=== PATIENT | male | born 1970 | race Hispanic/Latino ===

== ENCOUNTER 2023-08-08 20:12 | Emergency (ER) | payer OTHER ==
[~2023-08-08] VITALS: Ht 180.3 cm; Wt 136.1 kg
[2023-08-08 20:48] LABS: BASOPHILS # (AUTO) 0.05 K/uL (0.00-0.20); BASOPHILS % (AUTO) 0.4 % (0.0-5.0); EOSINOPHILS # (AUTO) 0.12 K/uL (0.00-0.70); EOSINOPHILS % (AUTO) 1.1 % (0.0-8.0); HEMATOCRIT 46.2 % (42-54); IMMATURE GRANULOCYTE ABSOLUTE 0.04 K/uL (0-1); LYMPHOCYTES # (AUTO) 2.7 K/uL (1.0-4.8); LYMPHOCYTES % (AUTO) 23.7 % (21.0-51.0); MEAN CORPUSCULAR HGB CONC 33.1 g/dL (32.0-36.0); MEAN CORPUSCULAR VOLUME 87.7 fL (79-99); MONOCYTES % (AUTO) 8.4 % (3.0-13.0); NEUTROPHILS # (AUTO) 7.5 K/uL (1.8-7.7); PLATELET COUNT (AUTO) 203 K/uL (130-400); RED BLOOD CELL COUNT(AUTO) 5.27 MIL/uL (4.50-6.20); RED CELL DISTRIBUTION WIDTH 13.2 % (11.0-15.5); WHITE BLOOD COUNT (AUTO) 11.4 K/uL (4.8-10.8)
[2023-08-08 20:49] LABS: SARS-CoV-2, RNA, NAAT NEGATIVE SARS CoV-2 (NEGATIVE)
[2023-08-08 20:55] LABS: INFLUENZA TYPE A Negative For Type A (NEGATIVE); INFLUENZA TYPE B Negative For Type B (NEGATIVE)
[2023-08-08 21:01] LABS: CARBON DIOXIDE 33 mmol/L (21-32); CHLORIDE 105 mmol/L (101-111); GLOMERULAR FILTR. RATE CALC 92 mL/min (>90); GLUCOSE,RANDOM 148 mg/dL (70-105); POTASSIUM 3.9 mmol/L (3.5-5.1); SODIUM SERUM 142 mmol/L (136-145); UREA NITROGEN, BLOOD 12 mg/dL (7-18)
[2023-08-08 21:08] LABS: ALANINE AMINOTRANSFERASE 92 U/L (12-78); ALBUMIN 3.5 g/dL (3.5-5.0); ASPARTATE AMINOTRANSFERASE 29 U/L (10-37); BILIRUBIN,TOTAL 0.6 mg/dL (0.2-1.0); CREATINE KINASE, TOTAL 182 U/L (21-232); TOTAL PROTEIN, SERUM 7.4 g/dL (6.0-8.3)
[2023-08-08 22:08] VITALS: BP 145/87; O2SAT 95
[2023-08-08] MEDS ORDERED: PRED20TA3 PO (22:28)
[2023-08-08] MEDS ORDERED: ALBU90AE2 IH (22:28)
[2023-08-08] MEDS ORDERED: AZIT500T2 PO (22:28)
[2023-08-08] MEDS ORDERED: IPRATROPIUM/ALBUTEROL SULFATE 3 ML SOLUTION IH ONE (22:30)
[2023-08-08 22:44] VITALS: PULSE 90; RESP 14
[2023-08-08] MEDS ORDERED: CEFTRIAXONE 1G VIAL ONE (23:16)
[2023-08-08] MEDS ORDERED: CEFTRIAXONE 1G VIAL IVPB ONE (23:30)
== END 2023-08-08 23:50 | disposition home or self-care (01) ==
LOC: EDH 20:12
DX: U09.9 Post COVID-19 condition, unspecified (principal); J02.0 Streptococcal pharyngitis; I10 Essential (primary) hypertension; Z90.49 Acquired absence of other specified parts of digestive tract
CPT/HCPCS: 99285; 96374; 71045; 87635; 82550; 84484; 80053; 83880; 83690; 85025; 85378; 87880; 87804 ×2; 36415; 93005; 94640; C9803; J0696

== ENCOUNTER 2025-08-15 23:40 | Emergency (ER) | payer SELFPAY ==
[~2025-08-15] VITALS: Ht 180.3 cm; Wt 149.7 kg
[~2025-08-15 23:40] MED LIST: ALBU90AE3 IH; AZIT500T2 PO; PRED20TA3 PO
--- NOTE | 2025-08-16 00:07 | NUR ---
The paitient did not bring his home medications
[2025-08-16 00:21] LABS: IMMATURE GRANULOCYTE ABSOLUTE 0.03 K/uL (0-1); NUCLEATED RED BLOOD CELLS 0.0 % (0.0-0.19); PLATELET COUNT (AUTO) 192 K/uL (130-400); RED BLOOD CELL COUNT(AUTO) 5.02 MIL/uL (4.50-6.20); RED CELL DISTRIBUTION WIDTH 12.9 % (11.0-15.5); WHITE BLOOD COUNT (AUTO) 8.6 K/uL (4.8-10.8)
--- NOTE | 2025-08-16 00:26 | EKG ---
[facility] Test Date: 2025-08-16 Test Time: 00:24:04 Pat Name: BREONNA SIMEON Department: [facility] Patient ID: [facility] [place]-[id number] Room: Gender: M [employer]inder: [id number] : 1970 Requested By: KATHY GONSALEZ Order Number: [id number] Reading MD: Cole Johansen Measurements Intervals [place] Rate: 97 P: 49 [place]: 138 QRS: -10 QRSD: 89 T: 44 QT: 352 QTc: 447 Interpretive Statements Sinus rhythm Compared to ECG 08/08/2023 21:07:39 Sinus tachycardia no longer present Electronically Signed On 08-16-2025 10:11:27 [employer]PECTOR [employer] LINE by Cole Johansen Please click the below link to view image of tracing.
[2025-08-16 00:27] LABS: CREATININE 0.8 mg/dL (0.5-1.3); GLOMERULAR FILTR. RATE CALC 106.0 mL/min (>90); GLUCOSE,RANDOM 131.0 mg/dL (70-105); SODIUM SERUM 138.0 mmol/L (136-145); UREA NITROGEN, BLOOD 10.0 mg/dL (7-18)
[2025-08-16 00:33] LABS: ALCOHOL, BLOOD 65.0 mg/dL (0-10); CREATINE KINASE, TOTAL 148.0 U/L (21-232)
--- NOTE | 2025-08-16 00:36 | ERN ---
General Chief Complaint: Mechanical Fall Stated Complaint: FALL, SYNCOPAL EPISODE, "SEIZURE-LIKE" MOVEMENTS Time Seen by MD: 23:46 Source: patient History of Present Illness Initial Comments PATIENT IS A 55-YEAR-OLD GENTLEMAN COMING IN COMPLAINING PASSING OUT EARLIER TODAY. PER PATIENT HE WAS SITTING IN HIS TABLE WAS LAUGHING BECAME SHORT OF BREATH AND PASSED OUT. FAMILY MEMBERS STATE THAT HE WAS SHAKING BECAUSE HE COULD NOT CATCH HIS BREATH. NO POSTICTAL PERIOD. Allergies: Coded Allergies: No Known Allergies (Unverified Allergy, Unknown, 08/08/23) Home Meds Active Scripts Azithromycin (Zithromax Tri-To) 500 Mg Tablet, 500 MG PO DAILY, #3 TAB Prov:ALEXANDRA SORIA MD 08/08/23 Prednisone (Prednisone) 20 Mg Tablet, 1 TAB PO AD for 6 Days, #14 TAB 0 Refills TAKE 3 TAB BY MOUTH daily X3 DAYS, THEN TAKE 2 TAB BY MOUTH daily X2 DAYS, THEN TAKE 1 TAB BY MOUTH ONCE A DAY X1 DAY. Prov:ALEXANDRA SORIA MD 08/08/23 Albuterol Sulfate (Proair Digihaler) 90 Mcg Aer.pw.bas, 2 PUFF IH QID, #1 UNIT Prov:ALEXANDRA SORIA MD 08/08/23 Past Medical History Past Medical History: Hypertension, Other Medical History Other: STATES HE TAKES A WATER PILL TO HELP PEE Past Surgical History: Appendectomy ROS Dictation CONSTITUTIONAL: NO CHILLS, NO FEVER, NO WEAKNESS, NO DIAPHORESIS, NO MALAISE. HEAD/FACE: NO SIGNS OF TRAUMA. EENT: NO EYE PAIN, NO BLURRED VISION, NO TEARING, NO DOUBLE VISION, NO EAR PAIN, NO EAR DISCHARGE, NO NOSE PAIN, NO NASAL CONGESTION, NO THROAT PAIN, NO THROAT SWELLING, NO MOUTH PAIN. RESPIRATORY: NO COUGH, NO ORTHOPNEA, NO SOB, NO STRIDOR, NO WHEEZING. CARDIOVASCULAR: NO CHEST PAIN, NO EDEMA, NO PALPITATIONS, SYNCOPE. GASTROINTESTINAL/ABDOMINAL: NO ABDOMINAL PAIN, NO CONSTIPATION, NO DIARRHEA, NO NAUSEA, NO VOMITING. GENITOURINARY: NO ABNORMAL DISCHARGE, NO DYSURIA, NO FREQUENT URINATION, NO HEMATURIA. NO COMPLAINTS OF PAIN IN THE GENITALS. MUSCULOSKELETAL: NO BACK PAIN, NO GOUT, NO JOINT PAIN, NO JOINT SWELLING, NO MUSCLE PAIN, NO MUSCLE STIFFNESS, NO NECK PAIN. INTEGUMENTARY: NO CHANGE IN COLOR, NO CHANGE IN HAIR/NAILS, NO DRYNESS, NO LESION, NO LUMPS, NO RASH. NEUROLOGICAL/PSYCH: NO ANXIETY, NOT DEPRESSED, NO EMOTIONAL PROBLEM, NO HEADACHE, NO NUMBNESS, NO PRE-EXISTING DEFICIT, NO HISTORY OF SEIZURES, NO TREMORS, NO WEAKNESS. HEMATOLOGIC/LYMPHATIC: NOT ANEMIC, NO HISTORY OF BLOOD CLOTS, NO APPARENT BLEEDING, NO BRUISING, GLANDS NOT SWOLLEN. ALL SYSTEMS NEGATIVE, EXCEPT NOTED. Physical Exam Physical Exam Dictation VITAL SIGNS: REVIEWED. GENERAL APPEARANCE: ALERT, ORIENTED X3, NO ACUTE DISTRESS, OBESE. HEAD AND FACE: NON-TRAUMATIC. EYES: PERRL, PINK CONJUNCTIVAS, EYELID NO TRAUMA, ANTERIOR CHAMBER CLEAR. EARS: PINNAS INTACT AND NO SIGNS OF TRAUMA OR ERYTHEMA. EAR CANALS CLEAR AND NO DISCHARGE. TMS NO ERYTHEMA. NOSE: NO DISCHARGE, NO BLEEDING. OROPHARYNX: MOUTH NORMAL, TEETH NO CARIES, TONGUE PINK. PHARYNX CLEAR, NO ERYTHEMA. TONSILS NO EXUDATES, NO ABSCESSES NOTED. MUCOUS MEMBRANE MOIST. NECK: SUPPLE, NON-TENDER, NO THYROMEGALY, NO MASSES, NO JVD, NO BRUITS. BREAST: DEFERRED. CHEST: NO TENDERNESS, NO CREPITUS, NO PARADOXICAL MOVEMENT, NO RETRACTIONS. LUNGS: CLEAR, WELL-VENTILATED, SYMMETRIC, NO RALES, NO WHEEZING, NO RHONCHI, NO STRIDOR, GOOD BREATH SOUNDS BILATERALLY. HEART: REGULAR RATE, REGULAR RHYTHM, NO MURMUR, NO GALLOPS. VASCULAR: NO PERIPHERAL EDEMA. ABDOMEN: SOFT, POSITIVE BOWEL SOUNDS, NONDISTENDED, NO GUARDING, NONTENDER, NO REBOUND, NO MASSES NO HEPATOMEGALY, NO SPLENOMEGALY, NO DILLARD'S SIGN, NO HERNIAS. RECTAL: DEFERRED. GENITAL: DEFERRED. NEUROLOGICAL: NORMAL SPEECH, GROSS MOTOR FUNCTION INTACT, GROSS SENSORY FUNCTION INTACT. MUSCULOSKELETAL: NECK NONTENDER, FULL RANGE OF MOTION, BACK NONTENDER, FULL RANGE OF MOTION. EXTREMITIES: NONTENDER, FULL RANGE OF MOTION. SKIN: COLOR PINK, DRY, NO TURGOR, NO RASH, NO LACERATIONS, NO ABRASIONS, NO CONTUSIONS. LYMPHATICS: DEFERRED. Results Laboratory and Microbiology Lab and Micro Result Laboratory Tests Test 08/16/25 00:09 White Blood Count 8.6 K/uL (4.8-10.8) Red Blood Count 5.02 MIL/uL (4.50-6.20) Hemoglobin 14.5 g/dL (14.0-18.0) Hematocrit 43.3 % (42-54) Mean Corpuscular Volume 86.3 fL (79-99) Mean Corpuscular Hemoglobin 28.9 pg (27.0-33.0) Mean Corpuscular Hemoglobin Concent 33.5 g/dL (32.0-36.0) Red Cell Distribution Width 12.9 % (11.0-15.5) Platelet Count 192 K/uL (130-400) Mean Platelet Volume 10.7 fL (7.5-10.5) H Immature Granulocyte % (Auto) 0.4 % (0-1) Neutrophils (%) (Auto) 59.9 % (40.0-77.0) Lymphocytes (%) (Auto) 27.5 % (21.0-51.0) Monocytes (%) (Auto) 9.6 % (3.0-13.0) Eosinophils (%) (Auto) 2.1 % (0.0-8.0) Basophils (%) (Auto) 0.5 % (0.0-5.0) Neutrophils # (Auto) 5.1 K/uL (1.8-7.7) Lymphocytes # (Auto) 2.4 K/uL (1.0-4.8) Monocytes # (Auto) 0.8 K/uL (0.1-1.0) Eosinophils # (Auto) 0.18 K/uL (0.00-0.70) Basophils # (Auto) 0.04 K/uL (0.00-0.20) Absolute Immature Granulocyte (auto 0.03 K/uL (0-1) Nucleated Red Blood Cells 0.0 % (0.0-0.19) Sodium Level 138 mmol/L (136-145) Potassium Level 3.3 mmol/L (3.5-5.1) L Chloride Level 104 mmol/L (101-111) Carbon Dioxide Level 25 mmol/L (21-32) Blood Urea Nitrogen 10 mg/dL (7-18) Creatinine 0.8 mg/dL (0.5-1.3) Glomerular Filtration Rate Calc 106 mL/min (>90) Random Glucose 131 mg/dL (70-105) H Total Calcium 8.4 mg/dL (8.5-10.1) L Total Creatine Kinase 148 U/L (21-232) Troponin I High Sensitivity 5 ng/L (4-75) Serum Alcohol 65 mg/dL (0-10) H Labs Reviewed?: Yes EKG/XRAY/US/CT/MRI CT Scan Comment [facility] [address] [place] [address] IMAGING REPORT Signed PATIENT: BREONNA SIMEON MR#: [id number] : 1970 SEX: M AGE: 55 LOCATION: [facility] ORDER 0003 STATUS: [facility] ER REPORT#: [id number] SERVICE 0002 REASON: SYNCOPE ORDERING PHYSICIAN: KATHY GONSALEZ MD PROCEDURE: HEAD WO - CT HEAD/BRAIN W/O CONTRAST EXAM: CT Head Without IV contrast. CLINICAL HISTORY: SYNCOPE TECHNIQUE: Axial computed tomography images of the head/brain without intravenous contrast. Sagittal and coronal reconstructions are available and reviewed. COMPARISON: None provided. FINDINGS: BRAIN: No evidence of acute hemorrhage. No mass lesion. No CT evidence for acute territorial infarct. No midline shift or extra-axial collections. VENTRICLES: No hydrocephalus. The septum pellucidum is not visualized with a box-shaped left appearance of the lateral ventricles on coronal sections. ORBITS: The orbits are unremarkable. SINUSES AND MASTOIDS: The paranasal sinuses and mastoid air cells are clear. BONES: No fracture. SOFT TISSUES: Unremarkable. IMPRESSION: No acute intracranial abnormality. Absent septum pellucidumrequires further evaluation with MRI brain, orbits, and sella to rule out any associated congenital malformations of the brain, optic nerves, and pituitary. /[place] DICTATED BY: RADHA MURRAY Jr., MD DATE: 08/16/25148 ELECTRONICALLY SIGNED BY: RADHA MURRAY Jr., MD DATE: 08/16/25148 [facility] MDM: DIFFERENTIAL DIAGNOSIS: NEW ONSET SEIZURE, SYNCOPE, RATIONALE: TESTS CONSIDERED AND ORDERED SECONDARY TO SHARED DECISION MAKING INCLUDE: PREVIOUS OUTSIDE RECORDS REVIEWED: OLD ER VISITS. RISK OF COMPLICATION AND/OR MORBIDITY OR MORTALITY OF PATIENT MANAGEMENT: NONE MEDICATIONS-PER MEDICATION RECONCILIATION NEED FOR HOSPITALIZATION: PATIENT DOES MEET CRITERIA FOR HOSPITALIZATION. NEED FOR EMERGENCY MAJOR/MINOR SURGERY: NO THERE ARE NO SOCIAL CONCERNS WITH THIS PATIENT. PRESCRIPTION DRUG MANAGEMENT PRESCRIPTIONS WILL INCLUDE SYMPTOMATIC CARE PATIENT'S PRIOR EXTERNAL MEDICAL RECORDS FROM OTHER ER VISITS WERE REVIEWED BY ME INDICATED. PRIOR TESTING AND RESULTS FROM PREVIOUS VISITS WERE REVIEWED. PRIOR TESTS WERE TAKEN INTO ACCOUNT WITH MEDICAL DECISION MAKING AND RESOURCE UTILIZATION, INDEPENDENT HISTORIAN/HISTORIANS WERE USED TO OBTAIN COMPLETE MEDICAL HISTORY. I INDEPENDENTLY INTERPRETED THE TEST THAT WERE PERFORMED, RESULTS WERE REVIEWED BY ME AND CONSIDERED FINDINGS ON RADIOLOGY IF ORDERED. MEDICAL MANAGEMENT AND EXAMINATION INTERPRETATION DISCUSSIONS WERE HAD BY ME WITH OTHER QUALIFIED HEALTHCARE PROFESSIONALS INDICATED FOR THE PATIENT'S CARE. PATIENT WILL BE TRANSFERRED TO [facility] UNDER THE CARE OF . ED Course Orders Procedure Category Date Status Time Cbc With Differential LAB 08/16/25 Complete 00:02 Chest 1vw RAD 08/16/25 Resulted 00:02 12 Lead Ekg Tracing- EKG 08/16/25 Complete Technical 00:02 Creatine Kinase, Total LAB 08/16/25 Complete 00:02 Troponin I High LAB 08/16/25 Complete Sensitivity 00:02 Urinalysis Profile LAB 08/16/25 In Process 00:02 Basic Metabolic Panel LAB 08/16/25 Complete 00:02 Ct Head/Brain W/O CT 08/16/25 Resulted Contrast 00:02 Drug Screen Urine LAB 08/16/25 In Process 00:09 Alcohol, Blood LAB 08/16/25 Complete 00:09 Vital Signs Date Time Temp Pulse Resp B/P (MAP) Pulse Ox O2 Delivery O2 Flow Rate FiO2 08/16/25 03:14 98.4 86 17 138/84 96 Room Air* 0 21 08/16/25 00:32 98 16 119/80 96 Room Air* 0 21 08/15/25 23:46 97.5 97 18 135/74 92 Room Air 0 DX & DISP Disposition: Transfer Decision to Admit Time: 03:50 Departure Impression: Primary Impression: New onset seizure Additional Impression: Syncope Condition: Stable Referrals: SELF,REFERRAL (PCP) KATHY GONSALEZ MD Aug 16, 2025 00:36
--- NOTE | 2025-08-16 00:50 | HMCIMG ---
EXAM: CT Head Without IV contrast. CLINICAL HISTORY: SYNCOPE TECHNIQUE: Axial computed tomography images of the head/brain without intravenous contrast. Sagittal and coronal reconstructions are available and reviewed. COMPARISON: None provided. FINDINGS: BRAIN: No evidence of acute hemorrhage. No mass lesion. No CT evidence for acute territorial infarct. No midline shift or extra-axial collections. VENTRICLES: No hydrocephalus. The septum pellucidum is not visualized with a box-shaped left appearance of the lateral ventricles on coronal sections. ORBITS: The orbits are unremarkable. SINUSES AND MASTOIDS: The paranasal sinuses and mastoid air cells are clear. BONES: No fracture. SOFT TISSUES: Unremarkable. IMPRESSION: No acute intracranial abnormality. Absent septum pellucidumrequires further evaluation with MRI brain, orbits, and sella to rule out any associated congenital malformations of the brain, optic nerves, and pituitary. /[place]
--- NOTE | 2025-08-16 00:51 | HMCIMG ---
EXAM: CR Chest, 2 Views. CLINICAL HISTORY: Syncope. COMPARISON: 08/08/23. FINDINGS: LUNGS: The lungs show no infiltrate or other acute finding. PLEURAL SPACES: No evidence of pleural effusion or pneumothorax. MEDIASTINUM: Cardiac size and mediastinal contours are within normal limits. BONES: No aggressive appearing osseous lesion. IMPRESSION: No acute cardiopulmonary pathology is evident. No significant interval change. /[place]
[2025-08-16 03:14] VITALS: BP 138/84; PULSE 86; RESP 17; TEMP 98.5; O2SAT 96
[2025-08-16 03:48] LABS: APPEARANCE,URINE CLEAR (CLEAR); GLUCOSE, URINE (UA) NEGATIVE (NEGATIVE); LEUKOCYTE ESTERASE ,URINE NEGATIVE Leu/uL (NEGATIVE); NITRATE,URINE NEGATIVE (NEGATIVE); OCCULT BLOOD,URINE NEGATIVE (NEGATIVE)
[2025-08-16 03:49] LABS: ADD UA MICROSCOPIC NO
[2025-08-16 03:55] LABS: AMPHET/METH SCREEN,URINE NEGATIVE (NEGATIVE); BARBITURATE SCREEN, URINE NEGATIVE (NEGATIVE); CANNABINOID SCREEN,URINE NEGATIVE (NEGATIVE); COCAINE SCREEN,URINE NEGATIVE (NEGATIVE)
== END 2025-08-16 06:09 | disposition short-term general hospital (02) ==
LOC: EDH 23:40
DX: R56.9 Unspecified convulsions (principal); R55 Syncope and collapse; I10 Essential (primary) hypertension; Z90.49 Acquired absence of other specified parts of digestive tract
CPT/HCPCS: 36415; 70450; 71045; 80048; 80305; 81003; 82550; 84484; 85025; 93005; 99285